=== PATIENT | male | born 1975 | race Caucasian/White ===

== ENCOUNTER 2018-02-12 08:01 | Emergency (ER) | payer OTHER ==
[2018-02-12 08:21] VITALS: BP 142/84
--- NOTE | 2018-02-12 08:48 | ED ---
Back Pain - HPI Summary HPI Summary: Acute low back pain yesterday at work. He has been working more lately. He lifted a cover to a machine that is heavy and felt some pain that has worsened until today. There is some radiation down left leg but no significant numbness and no weakness. no saddle anesthesia. he had a back injury about 6 years ago that took a month to get better. no prior surgery. - History of Current Complaint Chief Complaint: UCBackPain Stated Complaint: BACK PAIN - WC Time Seen by Provider: 02/12/18 08:30 Hx Obtained From: Patient Onset/Duration: Sudden Onset, Worse Since Onset/Duration: Started Hours Ago Timing: Constant, Lasting Hours Back Pain Location: Is Discrete @ - lower back midline. Severity Initially: Mild Severity Currently: Moderate Pain Intensity: 5 Character: Dull, Aching Aggravating Symptom(s): Movement, Lifting, Bending Alleviating Symptom(s): Position Associated Signs And Symptoms: Positive: Negative - Allergies/Home Medications Allergies/Adverse Reactions: Allergies Allergy/AdvReac Type Severity Reaction Status Date / Time No Known Allergies Allergy Verified 02/12/18 08:19 PMH/Surg Hx/FS Hx/Imm Hx Previously Healthy: No - Prior back injury 6 years ago. - Surgical History Surgery Procedure, Year, and Place: right knee meniscus repair Infectious Disease History: No Infectious Disease History: Denies: Traveled Outside the [place] in Last 30 Days - Family History Known Family History: Positive: Other - No back related disease. - Social History Occupation: Employed Full-time Lives: With Family Alcohol Use: Occasionally Substance Use Type: Reports: None Smoking Status (MU): Never Smoked Tobacco Review of Systems Constitutional: Negative Positive: Myalgia All Other Systems Reviewed And Are Negative: Yes Physical Exam Triage Information Reviewed: Yes Vital Signs On Initial Exam: Initial Vitals Temp Pulse Resp BP Pulse Ox 97.5 F 74 15 142/84 100 02/12/18 08:15 02/12/18 08:15 02/12/18 08:15 02/12/18 08:15 02/12/18 08:15 Vital Signs Reviewed: Yes Appearance: Positive: Pain Distress - with changing position to get onto table. Skin: Positive: Warm Head/Face: Positive: Normal Head/Face Inspection Eyes: Positive: Normal ENT: Positive: Normal ENT inspection Neck: Positive: Supple, Nontender, No Lymphadenopathy Respiratory/Lung Sounds: Positive: Clear to Auscultation, Breath Sounds Present. Negative: Decreased Breath Sounds, Rales Cardiovascular: Positive: Normal, RRR. Negative: Tachycardia Abdomen Description: Positive: No Organomegaly, Soft. Negative: Distended, Guarding Musculoskeletal: Positive: Other - Neg straight leg raise for pain radiating down leg. Reflexes nadir symmetric. There is lower back tenderness at midline. Neurological: Positive: Normal, Sensory/Motor Intact, Alert, Oriented to Person Place, Time. Negative: CN Intact II-III Psychiatric: Positive: Normal Diagnostics - Vital Signs Vital Signs Temp Pulse Resp BP Pulse Ox 02/12/18 08:15 97.5 F 74 15 142/84 100 - Laboratory Lab Statement: Any lab studies that have been ordered have been reviewed, and results considered in the medical decision making process. Back Pain Course/Dx - Course Assessment/Plan: no signs or symptoms of cord compression. - Diagnoses Provider Diagnoses: Low back pain Discharge - Sign-Out/Discharge Documenting (check all that apply): Patient Departure - Discharge Plan Condition: Good Disposition: HOME Prescriptions: Cyclobenzaprine TAB* [Flexeril 10 MG TAB*] 10 mg PO BID PRN #20 tab PRN Reason: Pain Naproxen [Naproxen 500 mg tab] 500 mg PO BID PRN #20 tablet. PRN Reason: Pain Patient Education Materials: Acute Low Back Pain (ED) Forms: *Work Release Referrals: No Primary Care Phys,NOPCP [Primary Care Provider] - - Billing Disposition and Condition Condition: GOOD Disposition: Home
== END 2018-02-12 08:46 | disposition home or self-care (01) ==
LOC: UCCORT 08:01
DX: M54.5 Low back pain (principal)
CPT/HCPCS: 99202; G0463